=== PATIENT | male | born 1970 | race Caucasian/White ===

== ENCOUNTER 2016-12-02 05:26 | Emergency (ER) | payer BC, MEDICAID, OTHER ==
[~2016-12-02] VITALS: Ht 170.2 cm; Wt 91.4 kg
[~2016-12-02 05:26] MED LIST: ALBU8I INH; DUONI NEB; PRED20 PO; SYMB80AE INH
[2016-12-02 05:29] VITALS: BP 120/92; PULSE 93; RESP 14; TEMP 98.7; O2SAT 98
[2016-12-02] MEDS ORDERED: RESP: ALBUTEROL 2.5 MG/IPRATROPIUM 0.5 MG NEB (SCH) INH ONE (05:45)
[2016-12-02] MEDS ORDERED: SODIUM CHLORIDE 0.9% FLUSH 5 ML FLUSH IVF PRN (05:45)
[2016-12-02] MEDS ORDERED: methylPREDNISolone SOD SUCC 125 MG/2 ML VIAL IVP ONE (05:45)
[2016-12-02] MEDS ORDERED: FAMOTIDINE 20 MG/2 ML VIAL IV PUSH ONE (05:45)
[2016-12-02] MEDS ORDERED: SYMB80AE INH (05:47)
[2016-12-02] MEDS ORDERED: VENTAER INH (05:47)
[2016-12-02] MEDS ORDERED: ALBU0.08 NEB (05:47)
[2016-12-02] MEDS ORDERED: OMEP20TA PO (05:48)
--- NOTE | 2016-12-02 05:49 | PD ---
HPI Chief Complaint: Respiratory Symptoms Time Seen by Provider: 05:45 Travel History International Travel<30 days: No Contact w/Intl Traveler<30days: No Traveled to known affect area: No History of Present Illness HPI 46-year-old male presents to the emergency department by private transportation for complaint of shortness of breath. Patient states he awakened with shortness of breath and wheezing. Patient uses home nebulizer and rescue inhaler with only minimal relief. Patient is noted symptoms throat irritation and noted some regurgitation after awakening. Patient does not report history of GERD. Patient has history of asthma and states he has plenty of his albuterol to use as nebulized medication as well as a rescue inhaler and is on oral maintenance steroids but has not been on prednisone recently. Patient denies fever chills. No report of chest pain or abdominal pain nausea or vomiting. No recent febrile illness. Patient was unable to have the flu shot due to food allergy. No report of myalgias or arthralgias. PFSH Past Medical History Narrative Medical Esophageal dilatation, asthma, sleep apnea, pneumonia, umbilical herniorrhaphy no tobacco use nursing notes reviewed Arthritis: No Asthma: Yes Autoimmune Disease: No Blood Disorders: No Anxiety: No Depression: No Heart Rhythm Problems: No Cancer: No Cardiovascular Problems: No Chemotherapy: No Chest Pain: No Congestive Heart Failure: No COPD: No Cerebrovascular Accident: No Diabetes: No Diminished Hearing: No Endocrine: No Gastrointestinal Disorders: Yes (EGD WITH ESOPHAGEAL DILITATION: 2015) GERD: Yes Genitourinary: No Headaches: No Hepatitis: No Hiatal Hernia: No Hypertension: No Immune Disorder: No Implanted Vascular Access Dvce: No Kidney Stones: No Musculoskeletal: No Neurologic: No Psychiatric: No Reproductive: No Respiratory: Yes (ASTHMA) Immunizations Current: Yes Myocardial Infarction: No Pneumonia: Yes Radiation Therapy: No Renal Failure: No Seizures: No Sleep Apnea: Yes ( STATES HE DOES BUT NOT DX) Thyroid Disease: No Ulcer: No Influenza Vaccination: No PNEUMOCCOCAL Vaccine (Year): 2 Past Surgical History Abdominal Surgery: Yes (UMBILICAL HERNIA REPAIR: AUG 2015) AICD: No Cardiac Surgery: No Ear Surgery: No Endocrine Surgery: No Eye Surgery: No Genitourinary Surgery: No Gynecologic Surgery: No Joint Replacement: No Neurologic Surgery: No Oral Surgery: No Pacemaker: No Thoracic Surgery: No Other Surgery: No Social History Alcohol Use: Yes (SOCIAL) Tobacco Use: No Substance Use: No Allergies-Medications (Allergen,Severity, Reaction): Coded Allergies: Flu Vaccine (Verified Allergy, Severe, ALLERGIC TO EGGS, 12/02/16) Penicillin (Verified Allergy, Severe, WHEEZING, 12/02/16) Seafood (Verified Allergy, Severe, Anaphylaxis, 12/02/16) Sulfa (Verified Allergy, Severe, UNKNOWN REACTION- A CHILD, 12/02/16) Uncoded Allergies: ENVIORNMENTAL (Allergy, Intermediate, 03/13/13) ALLERGIES TO ENVIORNMENTAL PER PT. Reported Meds & Prescriptions Reported Meds & Active Scripts Active Reported Omeprazole 20 Mg Tab 20 Mg PO DAILY Symbicort Inh (Budesonide/Formoterol Fumarate) 80-4.5 Mcg/Act Aero 2 Puff INH Q12HR Ventolin Hfa 18 GM Inh (Albuterol Sulfate) 90 Mcg/Act Aer 2 Puff INH Q4-6H PRN Albuterol Neb (Albuterol Sulfate) 2.5 Mg/3 Ml Neb 2.5 Mg NEB Q4HR NEB PRN Review of Systems Except as stated in HPI: all other systems reviewed are Neg General / Constitutional: No: Fever, Chills HENT: No: Congestion Cardiovascular: No: Chest Pain or Discomfort Respiratory: Positive: Cough, Shortness of Breath, Wheezing Gastrointestinal: No: Nausea, Vomiting, Diarrhea, Abdominal Pain Genitourinary: No: Frequency, Decreased Urinary Output Musculoskeletal: No: Myalgias, Arthralgias Skin: No Rash Neurologic: No: Weakness Psychiatric: No: Anxiety Hematologic/Lymphatic: No: Lymph Node Enlargement Physical Exam Narrative GENERAL: Well-developed well-nourished male in mild respiratory distress; no accessory muscle use and patient able to relay history in full sentences. SKIN: Warm and dry. HEAD: Normocephalic. EYES: No scleral icterus. No injection or drainage. NECK: Supple, trachea midline. No JVD or lymphadenopathy. CARDIOVASCULAR: Regular rate and rhythm without murmurs, gallops, or rubs. RESPIRATORY: Breath sounds equal bilaterally no wheezing with diminished breath sounds bilaterally. No accessory muscle use. GASTROINTESTINAL: Abdomen soft, non-tender, nondistended. MUSCULOSKELETAL: No cyanosis, or edema. BACK: Nontender without obvious deformity. No CVA tenderness. Data Data Last Documented VS Vital Signs Date Time Temp Pulse Resp B/P Pulse Ox O2 Delivery O2 Flow Rate FiO2 12/02/16 06:04 90 18 135/89 99 Room Air 12/02/16 05:29 98.7 Orders Iv Access Insert/Monitor (12/02/16 05:45) Ecg Monitoring (12/02/16 05:45) Oximetry (12/02/16 05:45) Chest, Single Ap (12/02/16 05:45) Sodium Chloride 0.9% Flush (Ns Flush) (12/02/16 05:45) Methylprednisolone So Succ Inj (Solumedr (12/02/16 05:45) Albuterol-Ipratropium Neb (Duoneb Neb) (12/02/16 05:45) Famotidine Inj (Pepcid Inj) (12/02/16 05:45) Group A Rapid Strep Screen (12/02/16 05:45) Strep Culture (Group A) (12/02/16 05:50) MDM Medical Decision Making Medical Screen Exam Complete: Yes Emergency Medical Condition: Yes Medical Record Reviewed: Yes Interpretation(s) rsa: negative cxr: no lobar infiltrate Differential Diagnosis Dyspnea, exacerbation of asthma, reflux esophagitis, viral syndrome, pharyngitis ; unlikely ACS, CHF, PE Narrative Course Patient administered DuoNeb updrafts along with Solu-Medrol 125 mg IV rapid strep antigen and specimen collected chest x-ray ordered At 6:40 AM patient feels significant improved lung sounds have improved and patient is stable for outpatient management; rapid strep antigen test is negative and chest x-ray reveals no lobar infiltrate Diagnosis Primary Impression: Cough Additional Impressions: Asthma exacerbation, mild GERD (gastroesophageal reflux disease) Referrals: Primary Care Physician call for appointment Patient Instructions: General Instructions Additional Instructions: Continue current medications as presently prescribed Complete course of prednisone as prescribed Add Pepcid AC daily to regimen for next 7 days Return to the emergency department for any concerns or change in condition Increase fluid hydration Monitor temperature for fever take acetaminophen/Tylenol as needed for fever 100.4 days Fahrenheit or greater Med/Other Pt SpecificInfo: Prescription(s) given Scripts Prednisone 50 Mg Tab50 Mg PO DAILY 4 Days Ref 0 Prov:Brittney Alegria MD 12/02/16 Disposition: 01 DISCHARGE HOME Condition: Stable Brittney Alegria MD Dec 02, 2016 05:49
[2016-12-02 06:04] VITALS: BP 135/89; PULSE 90; RESP 18; O2SAT 99
[2016-12-02] MEDS ORDERED: PRED50 PO (06:38)
--- NOTE | 2016-12-02 06:44 | RADHPO ---
EXAM DATE/TIME: 12/02/2016 06:19 [facility] COMPARISON: CHEST SINGLE AP, July 04, 2016, 17:45. INDICATIONS : Short of breath MEDICAL HISTORY : None. SURGICAL HISTORY : None. ENCOUNTER: Initial ACUITY: 1 day PAIN SCORE: 4/10 LOCATION: Bilateral chest FINDINGS: Trace left base atelectasis. Lungs otherwise clear. No pleural effusion. No pneumothorax. CONCLUSION: Minimal left base atelectasis. Felix Burr MD on December 02, 2016 at 6:42 Board Certified Radiologist. This report was verified electronically.
[2016-12-02 06:51] VITALS: BP 113/73
== END 2016-12-02 06:55 | disposition home or self-care (01) ==
LOC: PHED 05:26
DX: J45.901 Unspecified asthma with (acute) exacerbation (principal); R05 Cough; K21.9 Gastro-esophageal reflux disease without esophagitis; Z87.19 Personal history of other diseases of the digestive system; Z87.09 Personal history of other diseases of the respiratory system; Z87.01 Personal history of pneumonia (recurrent)
CPT/HCPCS: 71010; 87081; 87880; 94664; 96374; 96375; 99285; J2930

== ENCOUNTER 2017-01-21 05:43 | Emergency (ER) | payer MEDICAID, OTHER ==
[~2017-01-21] VITALS: Ht 167.6 cm; Wt 90.4 kg
[~2017-01-21 05:43] MED LIST changes: +ALBU0.08 NEB; -ALBU8I INH; -DUONI NEB; +OMEP20TA PO; -PRED20 PO; +PRED50 PO; +VENTAER INH
[2017-01-21 06:00] VITALS: BP 141/83; PULSE 92; RESP 22; TEMP 97.4; O2SAT 98
[2017-01-21] MEDS: RESP: ALBUTEROL 2.5 MG/IPRATROPIUM 0.5 MG NEB (SCH) INH ×3 (06:11→06:33)
[2017-01-21] MEDS ORDERED: SODIUM CHLORIDE 0.9% FLUSH 5 ML FLUSH IVF PRN (06:15)
[2017-01-21] MEDS ORDERED: methylPREDNISolone SOD SUCC 125 MG/2 ML VIAL IVP ONE (06:15)
[2017-01-21 06:31] VITALS: BP 141/83; PULSE 92; RESP 22; O2SAT 99
[2017-01-21] MEDS ORDERED: PRED50 PO (06:35)
--- NOTE | 2017-01-21 06:36 | PD ---
HPI Chief Complaint: Respiratory Distress Time Seen by Provider: 06:02 Travel History International Travel<30 days: No Contact w/Intl Traveler<30days: No Traveled to known affect area: No History of Present Illness HPI The patient is a 46-year-old male with a history of asthma that complains of shortness of breath since approximately 0400 this morning. He did not use his nebulizer this morning. He did not run out of nebulizer treatments. The last time he is on prednisone/steroids was over a month ago. He denies any fever. He denies any hemoptysis. He does have some sharp pain in the left costochondral junctions which is aggravated by his coughing. PFSH Past Medical History Arthritis: No Asthma: Yes Autoimmune Disease: No Blood Disorders: No Anxiety: No Depression: No Heart Rhythm Problems: No Cancer: No Cardiovascular Problems: No Chemotherapy: No Chest Pain: No Congestive Heart Failure: No COPD: No Cerebrovascular Accident: No Diabetes: No Diminished Hearing: No Endocrine: No Gastrointestinal Disorders: Yes (EGD WITH ESOPHAGEAL DILITATION: 2015) GERD: Yes Genitourinary: No Headaches: No Hepatitis: No Hiatal Hernia: No Hypertension: No Immune Disorder: No Implanted Vascular Access Dvce: No Kidney Stones: No Musculoskeletal: No Neurologic: No Psychiatric: No Reproductive: No Respiratory: Yes (ASTHMA) Immunizations Current: Yes Myocardial Infarction: No Pneumonia: Yes Radiation Therapy: No Renal Failure: No Seizures: No Sleep Apnea: Yes ( STATES HE DOES BUT NOT DX) Thyroid Disease: No Ulcer: No PNEUMOCCOCAL Vaccine (Year): 2 Past Surgical History Abdominal Surgery: Yes (UMBILICAL HERNIA REPAIR: AUG 2015) AICD: No Cardiac Surgery: No Ear Surgery: No Endocrine Surgery: No Eye Surgery: No Genitourinary Surgery: No Gynecologic Surgery: No Joint Replacement: No Neurologic Surgery: No Oral Surgery: No Pacemaker: No Thoracic Surgery: No Other Surgery: No Social History Alcohol Use: Yes (SOCIAL) Tobacco Use: No Substance Use: No Allergies-Medications (Allergen,Severity, Reaction): Coded Allergies: Flu Vaccine (Verified Allergy, Severe, ALLERGIC TO EGGS, 01/21/17) Penicillin (Verified Allergy, Severe, WHEEZING, 01/21/17) Seafood (Verified Allergy, Severe, Anaphylaxis, 01/21/17) Sulfa (Verified Allergy, Severe, UNKNOWN REACTION- A CHILD, 01/21/17) Uncoded Allergies: ENVIORNMENTAL (Allergy, Intermediate, 03/13/13) ALLERGIES TO ENVIORNMENTAL PER PT. Reported Meds & Prescriptions Reported Meds & Active Scripts Active Reported Omeprazole 20 Mg Tab 20 Mg PO DAILY Symbicort Inh (Budesonide/Formoterol Fumarate) 80-4.5 Mcg/Act Aero 2 Puff INH Q12HR Ventolin Hfa 18 GM Inh (Albuterol Sulfate) 90 Mcg/Act Aer 2 Puff INH Q4-6H PRN Albuterol Neb (Albuterol Sulfate) 2.5 Mg/3 Ml Neb 2.5 Mg NEB Q4HR NEB PRN Review of Systems Except as stated in HPI: all other systems reviewed are Neg Physical Exam Narrative GENERAL: The patient is alert, oriented 3 and moderate respiratory distress. His vital signs taken at 0632 now show oximetry of 99% with heart rate of 92 and blood pressure 141/83 with 20 to respirations. SKIN: Warm and dry. HEAD: Atraumatic. Normocephalic. EYES: Pupils equal and round. No scleral icterus. No injection or drainage. ENT: No nasal bleeding or discharge. Mucous membranes pink and moist. NECK: Trachea midline. No JVD. CARDIOVASCULAR: Regular rate and rhythm. No murmur appreciated. RESPIRATORY: No accessory muscle use. Bilateral wheezes are heard in all lung wynn. Breath sounds equal bilaterally. Breath sounds were initially diminished bilaterally. The patient, however, did not want to take deep breaths because it makes him cough. GASTROINTESTINAL: Abdomen soft, non-tender, nondistended. Hepatic and splenic margins not palpable. MUSCULOSKELETAL: No obvious deformities. No clubbing. No cyanosis. No edema. NEUROLOGICAL: Awake and alert. No obvious cranial nerve deficits. Motor grossly within normal limits. Normal speech. PSYCHIATRIC: Appropriate mood and affect; insight and judgment normal. Data Data Orders Complete Blood Count With Diff (01/21/17 06:02) Basic Metabolic Panel (Bmp) (01/21/17 06:02) Iv Access Insert/Monitor (01/21/17 06:02) Ecg Monitoring (01/21/17 06:02) Oximetry (01/21/17 06:02) Oxygen Administration (01/21/17 06:02) Sodium Chloride 0.9% Flush (Ns Flush) (01/21/17 06:15) Methylprednisolone So Succ Inj (Solumedr (01/21/17 06:15) Albuterol-Ipratropium Neb (Duoneb Neb) (01/21/17 06:15) MDM Medical Decision Making Medical Screen Exam Complete: Yes Emergency Medical Condition: Yes Medical Record Reviewed: Yes Differential Diagnosis Acute asthma, bronchitis, environmental/drug allergies, anxiety/hyperventilation Narrative Course The patient appears to have acute asthma. He did clear up considerably, it is now 0632 and he wants to go home. Plan: The patient be given a tapered course of prednisone and use his nebulizer machine. Diagnosis Primary Impression: Asthma exacerbation, mild Additional Instructions: As we discussed, the prednisone is taken one tablet twice daily for 4 days followed by one tablet once daily for 4 days. Use your nebulizer machine at home as needed every 4-6 hours. Follow-up with her primary care physician next week. Med/Other Pt SpecificInfo: Prescription(s) given Scripts Prednisone 50 Mg Tab50 Mg PO BID #12 TAB Ref 0 Prov:Eric Oswald MD 01/21/17 Eric Oswald MD Jan 21, 2017 06:36
[2017-01-21 06:40] VITALS: BP 136/74; PULSE 84; RESP 18
[2017-01-21 06:47] LABS: BASOPHIL % 0.5 % (0.0-2.0); EOSINOPHIL # 0.2 TH/MM3 (0-0.4); HEMATOCRIT 41.5 % (39.0-51.0); HEMO FLAGS DIFF FINAL; LYMPH % 39.9 % (9.0-44.0); LYMPHOCYTE # 2.4 TH/MM3 (1.0-4.8); MEAN CELL VOLUME 83.9 FL (80.0-100.0); MEAN CORPUSCULAR HEMOGLOBIN 28.7 PG (27.0-34.0); MEAN CORPUSCULAR HGB CONC 34.2 % (32.0-36.0); MONO % 6.7 % (0.0-8.0); NEUT % 49.9 % (16.0-70.0); PLATELET COUNT 253 TH/MM3 (150-450); RED BLOOD COUNT 4.95 MIL/MM3 (4.50-5.90); RED CELL DISTRIBUTION WIDTH 12.7 % (11.6-17.2)
[2017-01-21 06:54] VITALS: BP 140/77; PULSE 94; RESP 18; O2SAT 97
[2017-01-21 07:00] LABS: POTASSIUM 3.3 MEQ/L (3.5-5.1)
[2017-01-21 07:03] LABS: BICARBONATE 26.4 MEQ/L (21.0-32.0)
== END 2017-01-21 07:20 | disposition home or self-care (01) ==
LOC: PHED 05:43
DX: J45.901 Unspecified asthma with (acute) exacerbation (principal)
CPT/HCPCS: 80048; 85025; 94640; 94664; 96374; 99283; J2930

== ENCOUNTER 2017-12-31 23:18 | Emergency (ER) | payer MEDICAID ==
[~2017-12-31] VITALS: Ht 167.6 cm; Wt 92.0 kg
[~2017-12-31 23:18] MED LIST changes: -OMEP20TA PO; +OMEP20TA93 PO
[2017-12-31 23:24] VITALS: BP 132/82; PULSE 95; RESP 18; TEMP 98.5; O2SAT 97
--- NOTE | 2017-12-31 23:53 | PD ---
HPI Chief Complaint: Respiratory Symptoms Time Seen by Provider: 23:45 Travel History International Travel<30 days: No Contact w/Intl Traveler<30days: No Traveled to known affect area: No History of Present Illness HPI The patient is a 47-year-old male with a history of asthma who complains of wheezing for 1 day. He denies any fever, chest pain. He took a 40 mg prednisone that he had at home this morning. He does not smoke. He does have a nebulizer at home. He has multiple allergies including sulfa and penicillin. PFSH Past Medical History Arthritis: No Asthma: Yes Autoimmune Disease: No Blood Disorders: No Anxiety: No Depression: No Heart Rhythm Problems: No Cancer: No Cardiovascular Problems: No Chemotherapy: No Chest Pain: No Congestive Heart Failure: No COPD: No Cerebrovascular Accident: No Diabetes: No Diminished Hearing: No Endocrine: No Gastrointestinal Disorders: Yes (EGD WITH ESOPHAGEAL DILITATION: 2015) GERD: Yes Genitourinary: No Headaches: No Hepatitis: No Hiatal Hernia: No Hypertension: No Immune Disorder: No Implanted Vascular Access Dvce: No Kidney Stones: No Musculoskeletal: No Neurologic: No Psychiatric: No Reproductive: No Respiratory: Yes (ASTHMA) Immunizations Current: Yes Myocardial Infarction: No Pneumonia: Yes Radiation Therapy: No Renal Failure: No Seizures: No Sleep Apnea: Yes ( STATES HE DOES BUT NOT DX) Thyroid Disease: No Ulcer: No PNEUMOCCOCAL Vaccine (Year): 2 ?: Not Past Surgical History Abdominal Surgery: Yes (UMBILICAL HERNIA REPAIR: AUG 2015) AICD: No Cardiac Surgery: No Ear Surgery: No Endocrine Surgery: No Eye Surgery: No Genitourinary Surgery: No Gynecologic Surgery: No Joint Replacement: No Neurologic Surgery: No Oral Surgery: No Pacemaker: No Thoracic Surgery: No Other Surgery: Yes (HERNIA 2015) Social History Alcohol Use: Yes (OCCASSIONAL) Tobacco Use: No Substance Use: No Allergies-Medications (Allergen,Severity, Reaction): Coded Allergies: Fish Containing Products (Verified Allergy, Severe, Anaphylaxis, 12/31/17) Influenza Virus Vaccines (Verified Allergy, Severe, ALLERGIC TO EGGS, 12/31) Sulfa (Sulfonamide Antibiotics) (Verified Allergy, Severe, UNKNOWN REACTION- A CHILD, 12/31/17) penicillin G (Verified Allergy, Severe, WHEEZING, 12/31/17) Uncoded Allergies: ENVIORNMENTAL (Allergy, Intermediate, 03/13/13) ALLERGIES TO ENVIORNMENTAL PER PT. Reported Meds & Prescriptions Reported Meds & Active Scripts Active Reported Omeprazole 20 Mg Tab 20 Mg PO DAILY Symbicort Inh (Budesonide/Formoterol Fumarate) 80-4.5 Mcg/Act Aero 2 Puff INH Q12HR Ventolin Hfa 18 GM Inh (Albuterol Sulfate) 90 Mcg/Act Aer 2 Puff INH Q4-6H PRN Albuterol Neb (Albuterol Sulfate) 2.5 Mg/3 Ml Neb 2.5 Mg NEB Q4HR NEB PRN Review of Systems Except as stated in HPI: all other systems reviewed are Neg Physical Exam Narrative GEN: The patient is alert, oriented 3 in moderate respiratory distress. His vital signs show heart rate of 95 but otherwise normal. SKIN: Focused skin assessment warm/dry. HEAD: Atraumatic. Normocephalic. EYES: Pupils equal and round. No scleral icterus. No injection or drainage. ENT: No nasal bleeding or discharge. Mucous membranes pink and moist. The throat is clear and the tympanic membranes are clear. NECK: Trachea midline. No JVD. CARDIOVASCULAR: Regular rate and rhythm. No murmur appreciated. RESPIRATORY: No accessory muscle use. The patient has bilateral wheezes in all lung wynn.. Breath sounds equal bilaterally. GASTROINTESTINAL: Abdomen soft, non-tender, nondistended. Hepatic and splenic margins not palpable. MUSCULOSKELETAL: No obvious deformities. No clubbing. No cyanosis. No edema. NEUROLOGICAL: Awake and alert. No obvious cranial nerve deficits. Motor grossly within normal limits. Normal speech. PSYCHIATRIC: Appropriate mood and affect; insight and judgment normal. Data Data Last Documented VS Vital Signs Date Time Temp Pulse Resp B/P (MAP) Pulse Ox O2 Delivery O2 Flow Rate FiO2 01/01/18 00:04 96 Room Air 01/01/18 00:04 20 12/31/17 23:24 98.5 95 132/82 (99) Orders Orders Complete Blood Count With Diff (12/31/17 23:47) Basic Metabolic Panel (Bmp) (12/31/17 23:47) Influenzae A/B Antigen (12/31/17 23:47) Iv Access Insert/Monitor (12/31/17 23:47) Ecg Monitoring (12/31/17 23:47) Oximetry (12/31/17 23:47) Oxygen Administration (12/31/17 23:47) Sodium Chloride 0.9% Flush (Ns Flush) (01/01/18 00:00) Methylprednisolone So Succ Inj (Solumedr (01/01/18 00:00) Albuterol-Ipratropium Neb (Duoneb Neb) (01/01/18 00:00) Labs Laboratory Tests Test 01/01/18 00:05 White Blood Count 8.2 TH/MM3 Red Blood Count 4.83 MIL/MM3 Hemoglobin 14.0 GM/DL Hematocrit 41.2 % Mean Corpuscular Volume 85.4 FL Mean Corpuscular Hemoglobin 28.9 PG Mean Corpuscular Hemoglobin Concent 33.9 % Red Cell Distribution Width 13.8 % Platelet Count 243 TH/MM3 Mean Platelet Volume 7.6 FL Neutrophils (%) (Auto) 70.9 % Lymphocytes (%) (Auto) 19.4 % Monocytes (%) (Auto) 8.2 % Eosinophils (%) (Auto) 1.0 % Basophils (%) (Auto) 0.5 % Neutrophils # (Auto) 5.8 TH/MM3 Lymphocytes # (Auto) 1.6 TH/MM3 Monocytes # (Auto) 0.7 TH/MM3 Eosinophils # (Auto) 0.1 TH/MM3 Basophils # (Auto) 0.0 TH/MM3 CBC Comment DIFF FINAL Differential Comment Blood Urea Nitrogen 19 MG/DL Creatinine 1.40 MG/DL Random Glucose 97 MG/DL Calcium Level 8.5 MG/DL Sodium Level 141 MEQ/L Potassium Level 3.5 MEQ/L Chloride Level 108 MEQ/L Carbon Dioxide Level 24.4 MEQ/L Anion Gap 9 MEQ/L Estimat Glomerular Filtration Rate 54 ML/MIN [facility] Medical Decision Making Medical Screen Exam Complete: Yes Emergency Medical Condition: Yes Medical Record Reviewed: Yes Interpretation(s) The influenza A/B antigen is negative for flu a and flu B antigen. The CBC is normal. The basic metabolic profile shows a BUN of 19, creatinine 1.4, GFR 54 but is otherwise unremarkable. Differential Diagnosis Acute asthma, pneumonia, COPD with acute exacerbation, hypoxemia, bronchitis with bronchospasm Narrative Course The patient appears to have acute asthma. There is no evidence for pneumonia clinically. He seems to get better with DuoNeb's, he states he only has albuterol at home. He will also get at stepwise tapered course of prednisone. He is to follow-up next week with his primary care physician. It is now 1240 and the patient feels much better and he wants to go home. Diagnosis Primary Impression: Acute asthma exacerbation Additional Instructions: As we discussed, the prednisone is taken twice daily for 4 days followed by once daily for 4 days. Follow-up next week with your primary care physician. Med/Other Pt SpecificInfo: Prescription(s) given Scripts Prednisone (Prednisone) 50 Mg Tab 50 MG PO BID for X 4 days than daily X 4 days, #12 TAB 0 Refills Prov: Eric Oswald MD 01/01/18 Ipratropium-Albuterol Neb (Duoneb) 0.5-2.5 Mg/3 Ml Neb 1 NEBULE INH Q8HR NEB for Breathing Treatment, #60 NEBULE 0 Refills Prov: Eric Oswald MD 01/01/18 Disposition: 01 DISCHARGE HOME Condition: Stable Eric Oswald MD Dec 31, 2017 23:53
[2018-01-01] MEDS ORDERED: SODIUM CHLORIDE 0.9% FLUSH 10 ML FLUSH IVF PRN
[2018-01-01] MEDS ORDERED: methylPREDNISolone SOD SUCC 125 MG/2 ML VIAL IV PUSH ONE
[2018-01-01 00:04] VITALS: RESP 20; O2SAT 96
[2018-01-01 00:09] LABS: AUTOMATED NEUTROPHIL # 5.8 TH/MM3 (1.8-7.7); BASOPHIL % 0.5 % (0.0-2.0); EOSINOPHIL # 0.1 TH/MM3 (0-0.4); HEMATOCRIT 41.2 % (39.0-51.0); LYMPH % 19.4 % (9.0-44.0); LYMPHOCYTE # 1.6 TH/MM3 (1.0-4.8); MEAN CELL VOLUME 85.4 FL (80.0-100.0); MEAN CORPUSCULAR HEMOGLOBIN 28.9 PG (27.0-34.0); MEAN CORPUSCULAR HGB CONC 33.9 % (32.0-36.0); MEAN PLATELET VOLUME 7.6 FL (7.0-11.0); MONO % 8.2 % (0.0-8.0); MONOCYTE # 0.7 TH/MM3 (0-0.9); NEUT % 70.9 % (16.0-70.0); PLATELET COUNT 243 TH/MM3 (150-450); RED BLOOD COUNT 4.83 MIL/MM3 (4.50-5.90); RED CELL DISTRIBUTION WIDTH 13.8 % (11.6-17.2); WHITE BLOOD COUNT 8.2 TH/MM3 (4.0-11.0)
[2018-01-01] MEDS: RESP: ALBUTEROL 2.5 MG/IPRATROPIUM 0.5 MG NEB (SCH) INH (00:09)
[2018-01-01 00:19] LABS: BICARBONATE 24.4 MEQ/L (21.0-32.0); CALCIUM 8.5 MG/DL (8.5-10.1)
[2018-01-01 00:23] LABS: CREATININE 1.4 MG/DL (0.60-1.30)
[2018-01-01] MEDS ORDERED: PRED50 PO (00:35)
[2018-01-01] MEDS ORDERED: IPRASOL INH (00:35)
[2018-01-01 01:08] VITALS: BP 139/89
== END 2018-01-01 01:09 | disposition home or self-care (01) ==
LOC: PHED 23:18
DX: J45.901 Unspecified asthma with (acute) exacerbation (principal); K21.9 Gastro-esophageal reflux disease without esophagitis; Z88.2 Allergy status to sulfonamides; Z88.0 Allergy status to penicillin; Z79.899 Other long term (current) drug therapy
CPT/HCPCS: 80048; 85025; 87804; 94640; 94664; 96374; 99283; J2930

== ENCOUNTER 2018-04-18 22:09 | Emergency (ER) | payer SELFPAY ==
[~2018-04-18] VITALS: Ht 170.2 cm; Wt 87.9 kg
[~2018-04-18 22:09] MED LIST changes: +IPRASOL INH
[2018-04-18 22:11] VITALS: BP 134/91; PULSE 101; RESP 24; TEMP 98.6; O2SAT 93
[2018-04-19 00:03] VITALS: BP 131/85; PULSE 89; RESP 20; O2SAT 99
--- NOTE | 2018-04-19 00:11 | PD ---
HPI Chief Complaint: Respiratory Distress Time Seen by Provider: 00:10 Travel History International Travel<30 days: No Contact w/Intl Traveler<30days: No Traveled to known affect area: No History of Present Illness HPI The patient is a 47-year-old male with a history of asthma and COPD. He states his lung problem arose from multiple lung infections and he never smoked. He states he has had wheezing tonight for 3 hours. He states he needs a refill on his DuoNeb treatments and he would like prednisone. PFSH Past Medical History Arthritis: No Asthma: Yes Autoimmune Disease: No Blood Disorders: No Anxiety: No Depression: No Heart Rhythm Problems: No Cancer: No Cardiovascular Problems: No Chemotherapy: No Chest Pain: No Congestive Heart Failure: No COPD: No Cerebrovascular Accident: No Diabetes: No Diminished Hearing: No Endocrine: No Gastrointestinal Disorders: Yes (EGD WITH ESOPHAGEAL DILITATION: 2015) GERD: Yes Genitourinary: No Headaches: No Hepatitis: No Hiatal Hernia: No Hypertension: No Immune Disorder: No Implanted Vascular Access Dvce: No Kidney Stones: No Musculoskeletal: No Neurologic: No Psychiatric: No Reproductive: No Respiratory: Yes (ASTHMA) Immunizations Current: Yes Myocardial Infarction: No Pneumonia: Yes Radiation Therapy: No Renal Failure: No Seizures: No Sleep Apnea: Yes ( STATES HE DOES BUT NOT DX) Thyroid Disease: No Ulcer: No PNEUMOCCOCAL Vaccine (Year): 2 Past Surgical History Abdominal Surgery: Yes (UMBILICAL HERNIA REPAIR: AUG 2015) AICD: No Cardiac Surgery: No Ear Surgery: No Endocrine Surgery: No Eye Surgery: No Genitourinary Surgery: No Gynecologic Surgery: No Joint Replacement: No Oral Surgery: No Pacemaker: No Thoracic Surgery: No Other Surgery: Yes (HERNIA 2015) Social History Alcohol Use: Yes (OCCASSIONAL) Tobacco Use: No Substance Use: No Allergies-Medications (Allergen,Severity, Reaction): Coded Allergies: Fish Containing Products (Verified Allergy, Severe, Anaphylaxis, 12/31/17) Influenza Virus Vaccines (Verified Allergy, Severe, ALLERGIC TO EGGS, 12/31) Sulfa (Sulfonamide Antibiotics) (Verified Allergy, Severe, UNKNOWN REACTION- A CHILD, 12/31/17) penicillin G (Verified Allergy, Severe, WHEEZING, 12/31/17) Uncoded Allergies: ENVIORNMENTAL (Allergy, Intermediate, 03/13/13) ALLERGIES TO ENVIORNMENTAL PER PT. Reported Meds & Prescriptions Reported Meds & Active Scripts Active Reported Symbicort Inh (Budesonide/Formoterol Fumarate) 80-4.5 Mcg/Act Aero 2 Puff INH Q12HR Ventolin Hfa 18 GM Inh (Albuterol Sulfate) 90 Mcg/Act Aer 2 Puff INH Q4-6H PRN Albuterol Neb (Albuterol Sulfate) 2.5 Mg/3 Ml Neb 2.5 Mg NEB Q4HR NEB PRN Review of Systems Except as stated in HPI: all other systems reviewed are Neg Physical Exam Narrative GENERAL: The patient is alert, oriented 3 in slight respiratory distress. His vital signs show blood pressure 134/91 with a heart rate 101 and respirations of 24. Oximetry is only 93%. SKIN: Focused skin assessment warm/dry. HEAD: Atraumatic. Normocephalic. EYES: Pupils equal and round. No scleral icterus. No injection or drainage. ENT: No nasal bleeding or discharge. Mucous membranes pink and moist. NECK: Trachea midline. No JVD. CARDIOVASCULAR: Regular rate and rhythm. No murmur appreciated. RESPIRATORY: No accessory muscle use. Bilateral wheezes are heard in all lung wynn. Breath sounds equal bilaterally. GASTROINTESTINAL: Abdomen soft, non-tender, nondistended. Hepatic and splenic margins not palpable. MUSCULOSKELETAL: No obvious deformities. No clubbing. No cyanosis. No edema. NEUROLOGICAL: Awake and alert. No obvious cranial nerve deficits. Motor grossly within normal limits. Normal speech. PSYCHIATRIC: Appropriate mood and affect; insight and judgment normal. Data Data Last Documented VS Vital Signs Date Time Temp Pulse Resp B/P (MAP) Pulse Ox O2 Delivery O2 Flow Rate FiO2 04/19/18 01:11 82 18 99 Room Air 04/19/18 01:03 04/18/18 22:11 98.6 Orders Orders Iv Access Insert/Monitor (04/19/18 00:11) Ecg Monitoring (04/19/18 00:11) Oximetry (04/19/18 00:11) Oxygen Administration (04/19/18 00:11) Chest, Pa & Lat (04/19/18 00:11) Sodium Chloride 0.9% Flush (Ns Flush) (04/19/18 00:15) Methylprednisolone So Succ Inj (Solumedr (04/19/18 00:15) Albuterol-Ipratropium Neb (Duoneb Neb) (04/19/18 00:15) [facility] Medical Decision Making Medical Screen Exam Complete: Yes Emergency Medical Condition: Yes Medical Record Reviewed: Yes Differential Diagnosis Acute asthma, bronchitis, pneumonia-unlikely, bronchitis with bronchospasm, COPD with acute exacerbation Narrative Course The patient has acute asthma. His lungs are clear and he wants to go home. He request refills on the DuoNeb treatments and the prednisone prescription. He is to follow-up with his primary care physician Diagnosis Primary Impression: Asthma exacerbation, mild Additional Instructions: As we discussed, the prednisone is 1 tablet twice daily for 4 days followed by 1 tablet once daily for 4 days. Med/Other Pt SpecificInfo: Prescription(s) given Scripts Ipratropium-Albuterol Neb (Duoneb) 0.5-2.5 Mg/3 Ml Neb 1 NEBULE INH Q6HR NEB for Breathing Treatment, #60 NEBULE 0 Refills Prov: Eric Oswald MD 04/19/18 Prednisone (Prednisone) 50 Mg Tab 50 MG PO BID for X 4 days than daily X 4 days, #12 TAB 0 Refills Prov: Eric Oswald MD 04/19/18 Disposition: 01 DISCHARGE HOME Condition: Stable Eric Oswald MD Apr 19, 2018 00:11
[2018-04-19] MEDS ORDERED: methylPREDNISolone SOD SUCC 125 MG/2 ML VIAL IV PUSH ONE (00:15)
[2018-04-19] MEDS ORDERED: SODIUM CHLORIDE 0.9% FLUSH 10 ML FLUSH IVF PRN (00:15)
[2018-04-19] MEDS: RESP: ALBUTEROL 2.5 MG/IPRATROPIUM 0.5 MG NEB (SCH) INH ×3 (00:19→00:42)
[2018-04-19 01:03] VITALS: O2SAT 99
[2018-04-19 01:11] VITALS: PULSE 82; RESP 18; O2SAT 99
--- NOTE | 2018-04-19 01:16 | RADRPT ---
EXAM DATE: 04/19/2018 12:56 AM EDT AGE/SEX: 47 years / Male INDICATIONS: Short of breath. CLINICAL DATA: This is the patient's initial encounter. Patient reports that signs and symptoms have been present for 1 day and indicates a pain score of 6/10. MEDICAL/SURGICAL HISTORY: Asthma. None. COMPARISON: [facility], CHEST PA & LAT, 08/29/2015. . FINDINGS: PA and lateral views of the chest demonstrate the linear density right middle lobe. Heart normal in s ize. Left lung clear. The cardiomediastinal contours are unremarkable. Osseous structures are intact. CONCLUSION: Right middle lobe subsegmental atelectasis versus scarring. Electronically signed by: Christophe Covington MD 04/19/2018 1:15 AM EDT
[2018-04-19] MEDS ORDERED: PRED50 PO (01:58)
[2018-04-19] MEDS ORDERED: IPRASOL INH (01:59)
== END 2018-04-19 02:06 | disposition home or self-care (01) ==
LOC: PHED 22:09
DX: J45.901 Unspecified asthma with (acute) exacerbation (principal); K21.9 Gastro-esophageal reflux disease without esophagitis; G47.30 Sleep apnea, unspecified; Z79.51 Long term (current) use of inhaled steroids; Z88.2 Allergy status to sulfonamides; Z88.0 Allergy status to penicillin; Z87.01 Personal history of pneumonia (recurrent)
CPT/HCPCS: 71046; 94640; 94664; 96374; 99284; J2930